=== PATIENT | female | born 1945 | race Caucasian/White ===

== ENCOUNTER → 2016-07-12 | Outpatient (CLI) | payer MEDICARE, OTHER ==
[~2016-07-12] MED LIST: ALLEGRA ALLERG180 MG PO; ALPRAZOLAM0.5 MG PO; AMLODIPINE BESYL5 MG PO; ATORVASTATIN CA80 MG PO; CELEBREX PO; COUMADIN6 MG PO; CRESTOR10 MG PO; DESYREL100 MG PO; ESTRADIOL0.5 MG PO; KCL PO; KLOR-CON PO; MAXZIDE-25 MG T1 TAB PO; MULTI-VITAMIN1 TAB PO; NEXIUM PO; NORCO 10/3251 TAB DOB; OMEPRAZOLE20 M1 PO; PHENERGAN25 M1 PO; PREMARIN0.3 MG PO; REQUIP0.5 MG PO; ROPINIROLE HCL1 MG PO; TRAMADOL HCL50 M1; TRAMADOL HCL50 M1 PO; XANAX0.5 MG PO; ZANTAC150 M1 PO
== END | disposition home or self-care (01) ==
LOC: CSSDAY 15:55
DX: I48.91 Unspecified atrial fibrillation (principal); Z79.01 Long term (current) use of anticoagulants; T45.514A Poisoning by anticoagulants, undetermined, initial encounter
CPT/HCPCS: 36430; 86900; 86901; P9059

== ENCOUNTER → 2016-10-09 | Outpatient (CLI) | payer MEDICARE, OTHER ==
--- NOTE | ~2016-10-09 | XA30 ---
[facility] A Service of [facility] RADIOLOGY TEXT RESULTS PATIENT: HEBER ROSADO LOCATION: [facility] : 45 UNIT #: [id number] AGE: [address]: Ayo Marie MD SEX: F ORDER DR: [id number] [facility] [address] [place], [place] [address] [id number] O MR#: [id number] Acc #: [id number] NAME: HEBER ROSADO : 1945 SEX: F STUDY DATE/TIME: 10/09/2016 13:09 UNIT: [facility] ROOM: STUDY DESCRIPTION: XA Arthrocentesis Major Joint Attending Physician: Ayo Marie M.D. Ordering Physician: Ayo Marie M.D. Primary Care Physician: Luna Vickers M.D. MEDICAL IMAGING REPORT This report is preliminary unless electronic signature is present EXAM Right hip injection under fluoroscopy HISTORY Chronic right hip pain. Previous left hip arthroplasty. FINDINGS Procedure, attendant risks and options were discussed with Ms. Rosado. She understands and wishes to proceed. The right groin was prepped and draped with sterile drapes and Chlorhexidine solution. Under fluoroscopic guidance a 22-gauge needle was placed into the right hip joint. Its position was confirmed by contrast injection under fluoroscopy. A total of 4 mL of bupivacaine and 80 mg Depo-Medrol was subsequently injected and needle removed. A single spot radiograph was obtained documenting placement. Total fluoroscopy time 0.5 minutes. Total exposure estimated at 11 mGy air kerma. Prior to procedure the patient lists her pain between 7-8/10 scale. Postprocedure she notes that it is of 4-5, however the patient was not using her walker postprocedure. CONCLUSION Successful right hip injection with improvement of the patient's symptomatology. Dictated by... Alberto Portillo M.D. THIS IS AN ELECTRONICALLY VERIFIED REPORT Alberto Portillo M.D. at 10/10/2016 7:26 AM JFSanjana TD: 10/09/2016 14:01 JOB #: [id number] [facility] A Service of [facility] RADIOLOGY TEXT RESULTS PATIENT: HEBER ROSADO [facility] #: [id number] : 45 UNIT #: [id number] AGE: [address]: Ayo Marie MD SEX: F ORDER DR: MEDICAL IMAGING REPORT Page 1 of 1 COPY
== END | disposition home or self-care (01) ==
LOC: CIVR 09-23 13:00
PROC: 3E0U33Z Introduction of Anti-inflammatory into Joints, Percutaneous Approach (ICD-10-PCS; principal; 2016-10-09)
PROC: 3E0U3BZ Introduction of Anesthetic Agent into Joints, Percutaneous Approach (ICD-10-PCS; 2016-10-09)
DX: M16.11 Unilateral primary osteoarthritis, right hip (principal); Z96.642 Presence of left artificial hip joint
CPT/HCPCS: 77002; J1030; Q9967

== ENCOUNTER → 2017-01-28 | Outpatient (CLI) | payer MEDICARE, OTHER ==
--- NOTE | ~2017-01-28 | XA30 ---
[facility] A Service of [facility] RADIOLOGY TEXT RESULTS PATIENT: HEBER RUEDA [facility] : 45 UNIT #: [id number] AGE: [address]: Ayo Marie MD SEX: F ORDER DR: [id number] [place] [id number] [place], [place] [address] [id number] O MR#: [id number] Acc #: [id number] NAME: HEBER RUEDA : 1945 SEX: F STUDY DATE/TIME: 01/28/2017 12:57 UNIT: [facility] ROOM: STUDY DESCRIPTION: XA Arthrocentesis Major Joint Attending Physician: Ayo Marie M.D. Referring Physician: Ayo Marie M.D. Ordering Physician: Ayo Marie M.D. Primary Care Physician: Luna Vickers M.D. MEDICAL IMAGING REPORT This report is preliminary unless electronic signature is present EXAM Right hip injection. INDICATIONS Right hip pain. Osteoarthritis. PROCEDURE Fluoroscopically guided right hip injection. The risks and benefits of the procedure were discussed with the patient. Specifically, the low risk of bleeding and low risk of infection were emphasized. The patient was given an opportunity to ask questions and an informed consent was obtained. Preprocedural time-out was performed per protocol. The patient's leg was placed in a neutral position with slight flexion at the hip. A fausto was placed in the lateral femoral neck. The area was prepped and draped in the usual sterile fashion. 1% lidocaine was infiltrated into the skin. Under fluoroscopic guidance, a 3.5-inch, 22-gauge spinal needle was advanced into the right hip joint. Intraarticular location was confirmed with an injection of a small amount of Isovue-300 contrast. Subsequently, 80 mg of Depo-Medrol was injected into the joint along with 4 mL of Marcaine. The patient tolerated the procedure well with no immediate complications. Fluoroscopic time 0.1-minute. One image acquired. Preprocedural pain scale of 6 out of 10. Postprocedural pain was 2 out of 10. [facility] A Service of [facility] RADIOLOGY TEXT RESULTS PATIENT: HEBER RUEDA LOCATION: [facility] #: [id number] : 45 UNIT #: [id number] AGE: [address]: Ayo Marie MD SEX: F ORDER DR: Successful intraarticular injection of the right hip. Dictated by... Ervin Edwards M.D. THIS IS AN ELECTRONICALLY VERIFIED REPORT Ervin Edwards M.D. at 01/29/2017 9:45 AM ELSA/ashleigh TD: 01/29/2017 00:00 JOB #: [id number] MEDICAL IMAGING REPORT Page 1 of 1 COPY
== END | disposition home or self-care (01) ==
LOC: CIVR 01-21 13:00
DX: M16.11 Unilateral primary osteoarthritis, right hip (principal)
CPT/HCPCS: 77002; J1030; Q9967